=== PATIENT | female | born 2000 | race Two or more races ===

== ENCOUNTER 2024-11-09 02:06 | Day surgery (SDC) | payer MEDICAID, SELFPAY ==
[2024-11-09] VITALS (12 sets, daily range): BP systolic 84–124; BP diastolic 49–75; PULSE 60–79; RESP 13–20; TEMP 36.5–37; O2SAT 98–100; BMI 26.6
--- NOTE | 2024-11-09 02:16 | PD.EDRME ---
Rapid Medical Screening Exam RME Arrival date/time: 11/09/24 02:06 24 year old female present to Ed for c/o of abd pain for 1 day I have greeted and performed a focused initial assessment of this patient. A comprehensive ED assessment and evaluation of the patient, analysis of all test results, and completion of the medical decision making process will be conducted by additional ED providers. Chief Complaint: Abdominal Pain Time Seen by Provider: 11/09/24 02:13
[2024-11-09] MEDS: MG HYD/AL HYD/SIME (Maalox Reg) SUSP 30 ML UDC PO (02:33)
[2024-11-09 02:53] LABS: Collection Type, Urine Voided
[2024-11-09 03:02] LABS: Basophils % (Auto) 0 % (0-2.5); Eosinophils # (Auto) 0.1 Thou/mm3 (0.0-0.5); Eosinophils % (Auto) 1 % (0-10); Hematocrit 40.9 % (36.0-46.0); Hemoglobin 13.5 g/dL (12.0-16.0); Immature Granulocytes % (Auto) 0 % (0-0); Immature Granulocytes Auto 0.03 Thou/mm3 (0.00-0.00); Lymphocytes # (Auto) 2.6 Thou/mm3 (1.0-4.8); Lymphocytes % (Auto) 18 % (10-50); Mean Corpuscular Hemoglobin 27.7 pg (25.0-35.0); Mean Corpuscular Volume 84 fL (80-100); Monocytes # (Auto) 1.1 Thou/mm3 (0.0-0.8); Monocytes % (Auto) 8 % (0-12); Neutrophils # (Auto) 10.3 Thou/mm3 (1.8-7.7); Neutrophils % (Auto) 73 % (37-80); Nucleated Red Blood Cell % 0 /100 WBC (0); Platelet Count 274 Thou/mm3 (140-440); Red Blood Count 4.87 Miln/mm3 (4.00-5.20); White Blood Count 14.1 Thou/mm3 (3.6-11.0)
[2024-11-09 03:05] LABS: HCG,Qualitative Serum Negative
[2024-11-09 03:11] LABS: Bacteria,Urine 4+; Bilirubin,Urine Negative (Negative); Blood,Urine 2+ (Negative); Clarity,Urine Turbid (Clear/Hazy); Color,Urine Yellow (Lt Yel-Yel); Glucose, Urine Negative (Negative); Ketones,Urine Trace (Negative); Leukocyte Esterase,Urine Positive (Negative); Nitrite,Urine Positive (Negative); Protein,Urine 1+ (Neg - Trace); RBC,Urine 50 /hpf (0-3); Specific Gravity,Urine 1.042 (1.001-1.035); Squamous Epithelial Cell,Urine 10 /hpf (0-5); Urobilinogen,Urine Negative mg/dL (0.0-1.0); WBC,Urine 76 /hpf (0-5)
[2024-11-09 03:14] LABS: Alanine Aminotransferase 11 U/L (10-49); Albumin/Globulin Ratio 1.6 (1.2-2.2); Alkaline Phosphatase 101 U/L (46-116); Anion Gap 9 (7-16); Aspartate Amino Transferase 16 U/L (0-34); BUN/Creatinine Ratio 27 Ratio (12-20); Bilirubin,Total 0.5 mg/dL (0.3-1.2); Blood Urea Nitrogen 16 mg/dL (9-23); Calcium 9.3 mg/dL (8.3-10.6); Calcium (Corrected) 9.3 mg/dL (8.5-10.1); Carbon Dioxide 24.5 mMol/L (20.0-31.0); Chloride 106 mMol/L (98-107); Creatinine (Component) 0.6 mg/dL (0.6-1.3); Estimated Creatinine Clearance 129.1 mL/min (>60); Globulin 3.2 gm/dL (2.3-3.5); Glucose 104 mg/dL (74-106); Lipase 37 U/L (12-53); Osmolality,Calculated 278 (275-295); Potassium 3.6 mMol/L (3.4-5.1); Sodium 139 mMol/L (136-145); Total Protein 8.2 gm/dL (5.7-8.2); eGFR > 60 See Note
--- NOTE | 2024-11-09 03:40 | XR_ITS ---
Examination: CT abdomen with intravenous contrast CT pelvis with intravenous contrast 2-D coronal reconstructions 2-D sagittal reconstructions Date and time of exam:November 09, 2024 at 0453 hrs. Indications: Onset abdominal pain and lower abdomen beginning yesterday. CTDI: vol (mGy) 7.68 DLP: (mGycm) 420 Technique: Multiple axial sections of the abdomen and pelvis have been obtained. 64 slice high-resolution scanner used. 3 mm axial sections have been obtained, post intravenous injection 60 cc Isovue-370. 2-D sagittal, coronal reconstructions obtained. Low dose protocols were performed. One or more of the following dose reduction techniques were used; automated exposure control, adjustment of the mA and/or KV according to patient size, use of iterative reconstruction technique. Findings: No focal liver or splenic lesions No gallstones. No pancreatic mass. Atrophic left kidney with compensatory hypertrophy right kidney. Normal heart size. Tiny 10 mm fat-containing umbilical hernia. Inflamed enlarged appendix medial to the cecum, axial images 153 through 131 No pelvic abscess The urinary bladder is intact 11 mm noncalcified pulmonary nodule left lower lobe Impression: Acute appendicitis No peritonitis or pelvic abscess. Pulmonary 11 mm noncalcified pulmonary nodule left lower lobe, recommend PA lateral chest follow-up
--- NOTE | 2024-11-09 05:35 | PRELIM_ITS ---
ORIGINAL REPORTnullADDENDUM REPORTAcute appendicitis with an abscess [id number] mm at the tip of a ppendix. Report Electronically Signed By: Jordi Gorman 11/09/2024 8:44:00 AM [EST]
[2024-11-09] MEDS: SODIUM CHLORIDE 0.9% 1000 ML 1,000 ML 999 ML IV (06:03)
--- NOTE | 2024-11-09 06:21 | EDNOTE_ITS ---
<Statement entered by Yue Hussein MD - 11/10/24 09:19> As co-signing physician, I was present and available for consult prn. I concur with the plan and care as documented by the midlevel provider. ED Abdominal Pain RME/HPI General Chief Complaint: Abdominal Pain Stated complaint: ABD PAIN X YESTERDAY Time seen by provider: 11/09/24 02:13 Arrival date/time: 11/09/24 02:06 24-year-old female with no significant medical problems presents to the emergency department complains of lower abdominal pain x 2 days patient reports nausea without vomiting patient reports no fever Limitations: no limitations RME / HPI RME / HPI narrative: 11/09/24 02:06 24 year old female present to Ed for c/o of abd pain for 1 day I have greeted and performed a focused initial assessment of this patient. A comprehensive ED assessment and evaluation of the patient, analysis of all test results, and completion of the medical decision making process will be conducted by additional ED providers. Related Data Home Medications ?Medication ?Instructions ?Recorded ?Confirmed prenat.vits,brandee,[id number] 1 tab PO QDAY 12/19/22 12/19/22 Previous Rx's ?Medication ?Instructions ?Recorded benzocaine 20 %-menthol 0.5 % 1 spray topical TID #56 pumps 12/20/22 topical aerosol (Dermoplast (with menthol)) docusate sodium 100 mg capsule 100 mg PO BID #60 caps 12/20/22 (Colace) hydrocodone 5 mg-acetaminophen 325 1 tab PO Q6H PRN pain #30 tabs 12/20/22 mg tablet lanolin 50 % topical ointment 1 applic topical TID PRN skin 12/20/22 irritation #15 tubes witch rafaela 50 % topical pads 1 pad topical BID #100 ea 12/20/22 (Tucks (witch rafaela)) acetaminophen 500 mg tablet 1,000 mg (2 x 500 mg) PO Q6H PRN 05/19/24 (Tylenol Extra Strength) pain #60 tabs bacitracin 500 unit/gram topical 1 applic topical QDAY #30 grams 05/19/24 ointment bismuth tribrom-petrolatum,wh 4 X #100 ea 05/19/24 4 bandage (Xeroform Petrolatum Dressing) gauze bandage 3.4 X 3.6 yard #96 ea 05/19/24 (Kerlix) ibuprofen 600 mg tablet 600 mg PO Q6H PRN pain #60 tabs 05/19/24 Allergies Allergy/AdvReac Type Severity Reaction Status Date / Time No Known Allergies Allergy Verified 11/09/24 02:10 Review of Systems Review of Systems Systems Reviewed: All systems reviewed, normal except as documented Constitutional Constitutional: Reports system reviewed and no additional complaints, except as documented, Denies fever(s) and Denies headache(s) Eyes Eyes: Reports system reviewed and no additional complaints, except as documented and Denies blurry vision ENT Ears, Nose, Mouth, and Throat: Reports system reviewed and no additional complaints, except as documented, Denies headache(s), Denies nasal congestion and Denies nasal discharge Cardiovascular Cardiovascular: Reports system reviewed and no additional complaints, except as documented, Denies chest pain and Denies dyspnea Respiratory Respiratory: Reports system reviewed and no additional complaints, except as documented, Denies chest congestion, Denies cough and Denies dyspnea Gastrointestinal Gastrointestinal: Reports system reviewed and no additional complaints, except as documented, Reports abdominal pain, Denies nausea and Denies vomiting Integumentary/Breasts Skin/Breast: Reports system reviewed and no additional complaints, except as documented and Denies rash Neurologic Neurologic: Reports system reviewed and no additional complaints, except as documented, Reports as per HPI and Denies headache(s) Past Medical History Past Medical History NEUROLOGIC: Negative Neurological Disorders ED Exam General Limitations: Present no limitations General appearance: Present alert and in no apparent distress Head Head exam: Present atraumatic, normocephalic and normal inspection Eye Eye exam: Present normal appearance, PERRL and EOMI; Absent conjunctival injection ENT ENT exam: Present normal exam, normal oropharynx and mucous membranes moist Neck Neck exam: Present normal inspection, full ROM and trachea midline Chest Chest inspection: Present normal inspection and symmetric chest wall rise Respiratory Respiratory exam: Present normal lung sounds bilaterally; Absent respiratory distress Cardiovascular Cardiovascular exam: Present regular rate, normal rhythm and normal heart sounds Abdominal Exam Abdominal exam: Present soft, tenderness and normal bowel sounds; Absent distention, guarding, rebound or rigidity Extremities Exam Extremities exam: Present normal inspection and full ROM Back Exam Back exam: Present normal inspection and full ROM Neurological Exam Neurological exam: Present alert, oriented X3 and CN II-XII intact Psychiatric Psychiatric exam: Present normal affect and normal mood Skin Skin exam: Present warm, dry, intact and normal color Course Quality Measures none Orders Category Date Time Status COVID-19 Screening Questionnaire NOW Care 11/09/24 07:[address] Screening NOW Care 11/09/24 03:40 Active Decision to Admit X1 Care 11/09/24 06:45 Active IV [Insert IV] STAT Care 11/09/24 03:[address] abdomen pelvis w con Stat Exams 11/09/24 03:40 Taken Blood Culture (Lab) Stat Lab 11/09/24 05:41 Ordered CBC Stat Lab 11/09/24 02:22 Completed CMP [Comprehensive Metabolic Panel] Stat Lab 11/09/24 02:22 Completed HCG,Qualitative Serum Stat Lab 11/09/24 02:22 Completed Lipase Stat Lab 11/09/24 02:22 Completed UA [Urinalysis] Stat Lab 11/09/24 02:30 Completed Piper/Tazo Inj [Zosyn Inj] 3.375 gm Med 11/09/24 05:41 Discontinued Sodium Chloride 0.9% (P) [Ns 0.9% (P)] 50 ml IV X1 Sodium Chloride 0.9% 1000 ml [Ns] 1,000 ml Med 11/09/24 05:41 Discontinued IV 999 mls/hr mg Hyd/Al Hyd/Santiago Susp [Maalox Susp] Med 11/09/24 02:17 Discontinued 30 ml PO X1 ONE Vital Signs Vital signs: Vital Signs Temperature 98.6 F 11/09/24 02:16 Pulse Rate 79 11/09/24 02:16 Respiratory Rate 17 11/09/24 02:16 Blood Pressure 123/69 11/09/24 02:16 Pulse Oximetry (%) 98 11/09/24 02:16 Oxygen Delivery Method Room Air 11/09/24 02:16 O2 saturation 98% room air within normal limits Abdominal Pain MDM MDM Narrative MDM Narrative:: 24-year-old female with no significant medical problems presents to the emergency department complains of lower abdominal pain x 2 days patient reports nausea without vomiting patient reports no fever On exam patient well-appearing patient does not appear ill or toxic in no acute distress On exam patient does have tenderness lower abdomen Lab work as well as CT scan ordered by my colleague patient does have leukocytosis CT scan consistent with appendicitis Patient given IV fluids and first dose of antibiotics here Consultation: 07:00 AM: I spoke with Dr. Orlando who will admit the patient for surgery At time of admission patient is in no distress Patient data External records reviewed:: [facility] previous records Clinical information provided by:: patient Social determinants that could affect healthcare access:: none Patient has the following chronic illnesses:: None How is presenting disease/condition affected by chronic disease/condition?: no chronic disease Evaluation data The following diagnostics were reviewed and interpreted by me:: lab results and radiology exam(s) Lab and/or radiology exams considered but not ordered:: Labs and radiology obtained Interpretation Summary: Reviewed by me Medications / Prescriptions Medications or Prescriptions considered but not ordered:: Given Medication administrations:: Medication Administration History Discontinued Medications Al Hydrox/Mg Hydrox/Simethicone (Mg Hyd/Al Hyd/Santiago (Maalox Reg) Susp 30 Ml Udc) 30 ml PO X1 ONE Stop: 11/09/24 02:18 Last Admin: 11/09/24 02:33 Dose: 30 ml Documented By: BERNARDA Piperacillin Sod/Tazobactam (Sod 3.375 gm/ Sodium Chloride) 50 mls @ 100 mls/hr IV X1 ONE Stop: 11/09/24 06:10 Sodium Chloride (Ns) 1,000 mls @ 999 mls/hr IV .Q1H1M ONE Stop: 11/09/24 06:41 Last Admin: 11/09/24 06:03 Dose: 999 mls/hr Documented By: BERNARDA Given Consultations Consultation(s) initiated? (list below): Yes Consultation #1 (Physician, Specialty, Details): Dr Orlando Diagnosis Differential diagnosis abdominal pain: abdominal pain, acute appendicitis and gastroenteritis Most likely diagnosis given after review of the tests above:: Appendicitis Admission Indicated Admission indicated?: indicated Admission Request Was there a request for admission?: Yes Admission Attestation Admission request attestation: Discussed case with [] from Hospitalist service regarding admission. Discussed patients ED course, exam findings, labs, and radiology results. The Hospitalist [agrees,declines] to accept the patient for admission. Disposition Plan Disposition Plan: Discharge Discharge Attestation Discharge Attestation: The patient and all family members were given an opportunity to ask questions and understood the discharge instructions. Discharge instructions specifically effects, indications for sooner follow up or return to the emergency department, and the expected course of current diagnosis. Patient condition: Stable Discharge Plan Plan Patient Disposition: Admit Acute Care w/in Hospital Disposition Comment: Stable Prescriptions/Referrals Prescriptions/Med Rec: No Action prenat.vits,brandee,mvs-obpe-kujpq Tablet 1 tab PO QDAY Dermoplast (with menthol) 20-0.5 % aerosol 1 spray topical TID Qty: 56 0RF hydrocodone-acetaminophen 5-325 mg tablet 1 tab PO Q6H MDD 6 PRN (Reason: pain) Qty: 30 0RF docusate sodium [Colace] 100 mg capsule 100 mg PO BID Qty: 60 0RF lanolin 50 % ointment 1 applic topical TID PRN (Reason: skin irritation) Qty: 15 0RF Tucks (witch rafaela) 50 % pads, medicated 1 pad topical BID Qty: 100 0RF bacitracin 500 unit/gram ointment 1 applic topical QDAY Qty: 30 1RF (DME) Xeroform Petrolatum Dressing 4 X 4 bandage See Rx Instructions .Route Qty: 100 0RF Rx Instructions: As directed (DME) Kerlix 3.4 X 3.6 -yard bandage See Rx Instructions .Route Qty: 96 0RF Rx Instructions: As directed ibuprofen 600 mg tablet 600 mg PO Q6H PRN (Reason: pain) Qty: 60 0RF acetaminophen [Tylenol Extra Strength] 500 mg tablet 1,000 mg PO Q6H PRN (Reason: pain) Qty: 60 0RF Referrals: No Primary/Family,Physician [Primary Care Provider] - In 1 week Problem List Clinical Impression: Acute appendicitis Patient/Caregiver Discharge Instructions Print Language: Urdu Stand Alone Forms: Rita Award Info., Patient Portal Info Letter PA/CERTIFIED SURGICAL TECH/FIRST ASSISTANT Supervising Physician PA/CERTIFIED SURGICAL TECH/FIRST ASSISTANT Supervising Physician: Dr. HUSSEIN
[2024-11-09] MEDS: PIPER/TAZO INJ 3.375 GM in SODIUM CHLORIDE 0.9% (P) 50 ML IV (07:15)
[2024-11-09] MEDS: CEFOXITIN 2 GM in SODIUM CHLORIDE 0.9% (P) 50 ML IV (08:03)
[2024-11-09] MEDS: KCL 20 mEq/L in D5-1/2NS 20 MEQ/1,000 ML BAG 100 MEQ IV (09:32)
--- NOTE | 2024-11-09 09:47 | CHAP ---
Patient expressed gratitude for prayer.
--- NOTE | 2024-11-09 11:00 | PD.SURHP ---
HPI Date of Admission 11/09/2024 Chief Complaint Chief Complaint: Right lower quadrant abdominal pain with nausea and vomiting HPI 24-year-old female without significant past medical history presented to the emergency department with acute onset of abdominal pain. Her pain started yesterday and epigastric and periumbilical region. The pain was initially intermittent. Her pain then become persistent, progressively worse and localized over right lower quadrant. She has had an episode of nausea and vomiting, but denies fever, chills, diarrhea, constipation or dysuria. She denies having similar symptoms in the past. Review of Systems Constitutional Constitutional: Denies chills, Denies fever(s) and Reports headache(s) ENT Ears, Nose, Mouth, and Throat: Reports headache(s) Cardiovascular Cardiovascular: Denies chest pain Respiratory Respiratory: Denies cough Gastrointestinal Gastrointestinal: Reports abdominal pain, Reports nausea and Reports vomiting Genitourinary Genitourinary: Denies difficulty voiding Neurologic Neurologic: Reports headache(s) Hematologic/Lymphatic Hematologic/Lymphatic: Denies easy bleeding and Denies easy bruising Past Medical History Surgical History OTHER SURGICAL HX: No surgeries in the past Social History SMOKING STATUS: Never smoker SUBSTANCE USE: does not use ALCOHOL: Never Meds Home Medications and Allergies Home Medications ?Medication ?Instructions ?Recorded ?Confirmed ?Type prenat.vits,brandee,rrx-jksh-aynbf 1 tab PO QDAY 12/19/22 12/19/22 History Allergies Allergy/AdvReac Type Severity Reaction Status Date / Time No Known Allergies Allergy Verified 11/09/24 02:10 Exam Vital Signs Temp Pulse Resp BP Pulse Ox O2 Del Method 97.9 F 70 18 124/65 100 Room Air 11/09/24 10:54 11/09/24 10:54 11/09/24 10:54 11/09/24 10:54 11/09/24 10:54 11/09/24 10:54 Constitutional Constitutional: no acute distress Routine Respiratory Exam Respiratory: Present CTA bilaterally Routine Cardiovascular Exam Cardiovascular: Present RRR Routine Abdominal Exam Abdominal: Present soft, normoactive bowel sounds and tenderness (RLQ tenderness to palpation with guarding, no rebound tenderness or peritonitis at this time); Absent distended Results Results: Laboratory Laboratory results: results reviewed Results: Imaging CT scan - abdomen: report reviewed and image reviewed CT scan - pelvis: report reviewed and image reviewed Assessment & Plan Problem List (1) Acute appendicitis: Qualifiers: Acute appendicitis type: unspecified acute appendicitis type Qualified Code(s): K35.80 - Unspecified acute appendicitis Status: Acute Plan Keep NPO with IVF and IV antibiotics and plan for laparoscopic possible open appendectomy. Risks include but not limited to infection, bleeding, injury to bowel, uterus, ovaries, surround neurovascular structures, abdominal sepsis and or abdominal abscess, need for further procedure and or operation discussed with the patient via sorter laundry articles. Benefits and alternatives explained to her, all her questions answered, she agreed and consented to proceed with the operation. Quality Measures Quality Measures none
--- NOTE | 2024-11-09 12:12 | PC.NURSE ---
Report given to Mayco Morgan, patient will transfer for surgery.
--- NOTE | 2024-11-09 13:39 | ESOP_ITS ---
Date of Procedure 11/09/24 Pre Op Diagnosis Acute appendicitis Post Op Diagnosis Acute appendicitis Procedure Laparoscopic appendectomy Findings Inflamed, dilated and hyperemic appendix without perforation Procedure Description Patient was brought into the operating room in supine position. After administration of general endotracheal anesthesia, abdomen was prepped and draped in standard surgical manner. A Veress needle was inserted through the umbilicus and pneumoperitoneum was obtained up to 15 mmHg. The Veress needle was removed and a 5 mm umbilical incision was made. A 5 mm trocar was placed and laparoscopic camera was inserted. Under direct visualization a laparoscopic camera a 5 mm trocar placed in suprapubic region and a 10 mm trocar placed in left lower quadrant. The abdomen was inspected, the cecum was identified and followed until the appendix was identified. The appendix was noted to be inflamed, dilated and hyperemic without perforation. A window was created between the appendix and mesoappendix and the appendix was divided near the appendix and cecal junction with blue Endo TRE stapling device. The mes oappendix was divided with espinosa Endo TRE stapling device. The appendix was placed inside an Endo Catch and removed from the abdomen utilizing left lower quadrant trocar site. Abdomen and pelvis copiously and thoroughly washed and irrigated, all the fluids were suctioned and the suctioned fluid returned clear. Hemostasis was adequate and satisfactory, staple lines were intact without bleeding or any leakage. Patient's uterus and ovaries appeared to be unremarkable. Left lower quadrant trocar sites fascial defect was closed with 0 Vicryl using Endo closure device. Instruments and trocars removed, pneumoperitoneum was evacuated and the incisions closed with 4-0 Monocryl subcuticular fashion. Instruments, needles and sponge counts were reported to be correct ??2. Patient tolerated the procedure well, was extubated, breathing spontaneously and without difficulty and was transferred to postanesthesia care in stable condition. Anesthesia GETA and local Pathology / specimen Other (Appendix) Estimated Blood Loss 5 Condition Stable Disposition PACU Surgeon Kindra Orlando MD Surgical Staff Operation Date: 11/09/24 13:45 Case Staff Anesthesiologist: Boyd Avalos RN First Assistant: Cyndi Garcia
--- NOTE | 2024-11-09 13:43 | SUR.PHASEI ---
1347 Patient arrived to recovery resting comfortably in [facility], on oxygen 8L via oxy mask with an oral airway in place, breathing unlabored, vital signs stable, dressing intact to lower abdomen; dermabond, no bleeding noted, lung sounds clear upon auscultation, bilateral radial pulses present when palpated, report received from Renetta
--- NOTE | 2024-11-09 15:14 | SUR.PHASEII ---
1514 Patient meets discharge criteria from recovery, awake and alert, breathing unlabored, vital signs stable, denies pain states, It's just sore , patient eating ice chips; tolerating well, denies nausea, patient assisted with dressing into her clothing by this clinical writer and her mother, discharge instructions given to patient and patients mother with the assistance of the telephone and drying supervisor cooking casing Shakira ID#[id number], mother signed discharge instructions. Patient given all her belongings prior to discharge, transported via wheelchair and left in a private vehicle.
== END 2024-11-09 15:14 | disposition home or self-care (01) ==
LOC: SERX 07:04 → S2EX 08:06
PROVIDERS: Physician Assistant; Emergency Provider Emergency Medicine; Referring Provider Surgery; Visit Provider Surgery
PROC: 0DTJ4ZZ Resection of Appendix, Percutaneous Endoscopic Approach (ICD-10-PCS; CPT 44970; principal; 2024-11-09 13:30)
DX: K35.30 Acute appendicitis with localized peritonitis, without perforation or gangrene (principal)
CPT/HCPCS: 44970; 36415; 74177; 80053; 81001; 83690; 84703; 85025; 87040; 96361; 96365; 96367; 99285; A4217; A4649; J0694; J1100; J2250; J2405; J2543; J2704; J3010; J3480; J3490; J7030; J7050; Q9967; A9270; J1805

== ENCOUNTER 2025-07-25 10:59 | Emergency (ER) | payer MEDICAID, SELFPAY ==
[2025-07-25 11:12] VITALS: BP 129/78; PULSE 80; RESP 17; TEMP 36.8; O2SAT 100; BMI 25.7
--- NOTE | 2025-07-25 11:18 | XR_ITS ---
Examination: OB Transvaginal ultrasound of the pelvis, complete Technique: Transvaginal sonographic images pelvis performed using espinosa scale imaging Exam date and time: July 25, 2025, 12 noon INDICATIONS: Pelvic pain and vaginal bleeding today, 6 week by history FINDINGS: Uterus 7.4 cm, thickened endometrial stripe especially in the body of the endometrium 1.7 cm but extending to the cervix No intrauterine gestation Right ovary 2.4 cm arterial flow Left ovary 4.0 cm arterial flow IMPRESSION: Findings most consistent with incomplete spontaneous with retained products of conception.
[2025-07-25 11:46] LABS: Basophils # (Auto) 0.0 Thou/mm3 (0.0-0.2); Basophils % (Auto) 0 % (0-2.5); Eosinophils # (Auto) 0.1 Thou/mm3 (0.0-0.5); Eosinophils % (Auto) 1 % (0-10); Hematocrit 39.5 % (36.0-46.0); Hemoglobin 12.8 g/dL (12.0-16.0); Immature Granulocytes Auto 0.01 Thou/mm3 (0.00-0.00); Lymphocytes # (Auto) 1.9 Thou/mm3 (1.0-4.8); Lymphocytes % (Auto) 26 % (10-50); Mean Corpuscular HGB Conc 32.4 g/dl (31.0-37.0); Mean Corpuscular Hemoglobin 27.7 pg (25.0-35.0); Mean Corpuscular Volume 86 fL (80-100); Monocytes # (Auto) 0.6 Thou/mm3 (0.0-0.8); Monocytes % (Auto) 9 % (0-12); Neutrophils # (Auto) 4.5 Thou/mm3 (1.8-7.7); Neutrophils % (Auto) 64 % (37-80); Nucleated Red Blood Cell # 0.00 Thou/mm3 (0.00-0.00); Nucleated Red Blood Cell % 0 /100 WBC (0); Platelet Count 241 Thou/mm3 (140-440); RDW Standard Deviation 39.5 fL (36.4-46.3); Red Blood Count 4.62 Miln/mm3 (4.00-5.20); White Blood Count 7.1 Thou/mm3 (3.6-11.0)
[2025-07-25 12:27] LABS: Alanine Aminotransferase 8 U/L (10-49); Albumin, Serum 4.7 gm/dL (3.5-5.0); Albumin/Globulin Ratio 1.7 (1.2-2.2); Alkaline Phosphatase 77 U/L (46-116); Anion Gap 9 (7-16); Aspartate Amino Transferase 12 U/L (0-34); BUN/Creatinine Ratio 11 Ratio (12-20); Beta HCG,Quantitative 4942 mIU/mL (<5.0); Bilirubin,Total 0.5 mg/dL (0.3-1.2); Blood Urea Nitrogen 8 mg/dL (9-23); Calcium 9.3 mg/dL (8.3-10.6); Calcium (Corrected) 9.3 mg/dL (8.5-10.1); Carbon Dioxide 25.1 mMol/L (20.0-31.0); Chloride 107 mMol/L (98-107); Creatinine (Component) 0.7 mg/dL (0.6-1.3); Estimated Creatinine Clearance 117.5 mL/min (>60); Globulin 2.8 gm/dL (2.3-3.5); Glucose 86 mg/dL (74-106); Osmolality,Calculated 278 (275-295); Potassium 3.9 mMol/L (3.4-5.1); Sodium 141 mMol/L (136-145); Total Protein 7.5 gm/dL (5.7-8.2); eGFR > 60 See Note
--- NOTE | 2025-07-25 14:32 | EDNOTE_ITS ---
ED Female Urogenital RME/HPI General Chief complaint: Abdominal Pain Stated complaint: VAGINAL BLEEDING/ABD PAIN/ Time Seen by Provider: 07/25/25 11:18 Arrival date/time: 07/25/25 10:59 24-year-old female presents to the emergency department plaints of pelvic pain and vaginal bleeding patient reports onset 2 days ago. Patient reports being approximately 4 to 5 weeks Limitations: no limitations Related Data Home Medications ?Medication ?Instructions ?Recorded ?Confirmed prenat.vits,brandee,[id number] 1 tab PO QDAY 12/19/22 07/26/25 Previous Rx's ?Medication ?Instructions ?Recorded benzocaine 20 %-menthol 0.5 % 1 spray topical TID #56 pumps 12/20/22 topical aerosol (Dermoplast (with menthol)) lanolin 50 % topical ointment 1 applic topical TID PRN skin 12/20/22 irritation #15 tubes witch rafaela 50 % topical pads 1 pad topical BID #100 e a 12/20/22 (Tucks (witch rafaela)) docusate sodium 100 mg capsule 100 mg PO BID #30 caps 11/09/24 (Colace) hydrocodone 5 mg-acetaminophen 325 1 tab PO Q6H PRN pa in (scale score 11/09/24 mg tablet 7-10) #10 tabs ibuprofen 600 mg tablet 600 mg PO Q8H PRN pain (scal e 11/09/24 score 4-6) #15 tabs Allergies Allergy/AdvReac Type Severity Reaction Status Date / Time No Known Allergies Allergy Verified 07/26/25 10:24 Review of Systems Review of Systems Systems Reviewed: All systems reviewed, normal except as documented Constitutional Constitutional: Reports system reviewed and no additional complaints, except as documented, Denies fever(s) and Denies headache(s) Eyes Eyes: Reports system reviewed and no additional complaints, except as documented and Denies blurry vision ENT Ears, Nose, Mouth, and Throat: Reports system reviewed and no additional complaints, except as documented, Denies headache(s), Denies nasal congestion and Denies nasal discharge Cardiovascular Cardiovascular: Reports system reviewed and no additional complaints, except as documented, Denies chest pain and Denies dyspnea Respiratory Respiratory: Reports system reviewed and no additional complaints, except as documented, Denies chest congestion, Denies cough and Denies dyspnea Gastrointestinal Gastrointestinal: Reports system reviewed and no additional complaints, except as documented and Denies abdominal pain Genitourinary Genitourinary: Reports system reviewed and no additional complaints, except as documented and Reports abnormal vaginal bleeding Integumentary/Breasts Skin/Breast: Reports system reviewed and no additional complaints, except as documented and Denies rash Neurologic Neurologic: Reports system reviewed and no additional complaints, except as documented, Reports as per HPI and Denies headache(s) Past Medical History Past Medical History NEUROLOGIC: Negative Neurological Disorders, Seizures or Amyotrophic Lateral Sclerosis (ALS/Elida Gehrig's) CARDIAC: Negative Cardiac Disorders or Congestive Heart Failure RESPIRATORY: Negative Chronic Obstructive Pulmonary Disease (COPD) or Asthma GASTROINTESTINAL: Negative Gastrointestinal Disorders, Hepatitis or Colorectal Cancer GENITOURINARY: Negative Genitourinary Disorders, Renal Disease or Prostate Cancer REPRODUCTIVE: Positive Previous Pregnancies; Negative Breast Cancer, Pelvic Inflammatory Disease or Testicular Cancer MUSCULOSKELETAL: Negative Musculoskeletal Disorders or Bone Cancer ENDOCRINE: Negative Endocrine Disorders, Diabetes Mellitus Type 1 or Diabetes Mellitus Type 2 HEMATOLOGIC: Negative Blood Disorders or Sickle Cell Disease PSYCHO/SOCIAL: Positive Anxiety (no meds); Negative Psychiatric Problems, Schizophrenia, Recreational Drug Use, Bipolar Disorder, Depression, Behavior Problems, Self-Mutilation, Attention Deficit Disorder, Attention Deficit Hyperactivity Disorder, Depression, Post Traumatic Stress Disorder or Eating Disorder OTHER HISTORY: Negative Hospitalization, Autoimmune Disease, Down Syndrome, Autism, Developmental Delay, Shingles, Falls, Blood Transfusions, Blood Transfusion Reaction, Anesthesia Reactions, Organ Transplant, Chemotherapy, Radiation Therapy, Hyperbaric Therapy, MRSA, VRSA, Vancomycin-Resistant Enterococci, Human Immunodeficiency Virus (HIV), Chicken Pox, Measles, Mumps, Rubella (Cub[place] Measles), Pertussis, Clostridium Difficile, Cancer, Breast Cancer, Cervical Cancer, Colorectal Cancer, Lung Cancer, Ovarian Cancer, Prostate Cancer or Testicular Cancer Family History FAMILY HISTORY: Positive Family Cardiac Disorders (sister had open heart surgery and has a pacemaker) and Family Anesthesia Reaction (sister); Negative Family Psychiatric Problems, Family Respiratory Disorders, Family Gastrointestinal Problems, Family Cancer or Family Surgery Surgical History SURGICAL: Negative Section or Organ Transplant Social History SMOKING STATUS: Never smoker SECOND HAND EXPOSURE: No SUBSTANCE USE: does not use ED Exam General Limitations: Present no limitations General appearance: Present alert and in no apparent distress Head Head exam: Present atraumatic, normocephalic and normal inspection Eye Eye exam: Present normal appearance, PERRL and EOMI; Absent conjunctival injection ENT ENT exam: Present normal exam, normal oropharynx and mucous membranes moist Neck Neck exam: Present normal inspection, full ROM and trachea midline Chest Chest inspection: Present normal inspection and symmetric chest wall rise Respiratory Respiratory exam: Present normal lung sounds bilaterally; Absent respiratory distress, wheezes, stridor, accessory muscle use or prolonged expiratory phase Cardiovascular Cardiovascular exam: Present regular rate, normal rhythm and normal heart sounds Abdominal Exam Abdominal exam: Present soft and normal bowel sounds; Absent distention, tenderness, guarding, rebound or rigidity Extremities Exam Extremities exam: Present normal inspection and full ROM Back Exam Back exam: Present normal inspection and full ROM Neurological Exam Neurological exam: Present alert, oriented X3 and CN II-XII intact Psychiatric Psychiatric exam: Present normal affect and normal mood Skin Skin exam: Present warm, dry, intact and normal color Course Quality Measures none Orders Category Date Time Status US OB transvaginal Stat Exams 07/25/25 11:18 Completed ABO/RH Type Stat Lab 07/25/25 11:29 Completed Beta HCG,Quantitative Stat Lab 07/25/25 11:29 Completed CBC Stat Lab 07/25/25 11:29 Completed Comprehensive Metabolic Panel Stat Lab 07/25/25 11:29 Completed Vital Signs Vital signs: Vital Signs Temperature 98.3 F 07/25/25 11:12 Pulse Rate 80 07/25/25 11:12 Respiratory Rate 17 07/25/25 11:12 Blood Pressure 129/78 07/25/25 11:12 Pulse Oximetry (%) 100 07/25/25 11:12 Oxygen Delivery Method Room Air 07/25/25 11:12 O2 saturation 100% room air within normal Urogenital - Female MDM Narrative MDM Narrative:: 24-year-old female presents to the emergency department plaints of pelvic pain and vaginal bleeding patient reports onset 2 days ago. Patient reports being approximately 4 to 5 weeks On exam patient well-appearing patient does not appear ill or toxic patient hemodynamically stable Lab work imaging obtained I suspect patient is most likely having miscarriage Consultation: I spoke with Dr. Guerrero who states he can see the patient office tomorrow 10 AM At time of discharge patient no distress Patient data External records reviewed:: [facility] previous records Clinical information provided by:: patient Social determinants that could affect healthcare access:: none Patient has the following chronic illnesses:: None How is presenting disease/condition affected by chronic disease/condition?: no chronic disease Evaluation data The following diagnostics were reviewed and interpreted by me:: lab results and radiology exam(s) Lab and/or radiology exams considered but not ordered:: Labs and radiology obtained Interpretation Summary: Reviewed by me Medications / Prescriptions Medications or Prescriptions considered but not ordered:: Given Medication administrations:: Given Consultations Consultation(s) initiated? (list below): Yes Diagnosis Urogenital Female Differential Diagnosis: other (Dysfunction uterine bleeding, missed , threatened ) Most likely diagnosis given after review of the tests above:: Threatened Admission Indicated Admission indicated?: not indicated Admission Request Was there a request for admission?: No Disposition Plan Disposition Plan: Discharge Discharge Attestation Discharge Attestation: The patient and all family members were given an opportunity to ask questions and understood the discharge instructions. Discharge instructions specifically effects, indications for sooner follow up or return to the emergency department, and the expected course of current diagnosis. Patient condition: Stable Discharge Plan Plan Patient Disposition: HOME (Self Care) Discharge Disposition comment: Stable Prescriptions/Referrals Prescriptions/Med Rec: No Action docusate sodium [Colace] 100 mg capsule 100 mg PO BID Qty: 30 0RF ibuprofen 600 mg tablet 600 mg PO Q8H PRN (Reason: pain (scale score 4-6)) Qty: 15 0RF hydrocodone-acetaminophen 5-325 mg tablet 1 tab PO Q6H MDD 4 PRN (Reason: pain (scale score 7-10)) Qty: 10 0RF prenat.vits,brandee,[id number] Tablet 1 tab PO QDAY Dermoplast (with menthol) 20-0.5 % aerosol 1 spray topical TID Qty: 56 0RF lanolin 50 % ointment 1 applic topical TID PRN (Reason: skin irritation) Qty: 15 0RF Tucks (witch rafaela) 50 % pads, medicated 1 pad topical BID Qty: 100 0RF Referrals: Jesus Guerrero MD [Physician, SENIOR CHEMICAL ENGINEER] - 07/26/25 10:00 am Problem List Clinical Impression: , threatened Patient/Caregiver Discharge Instructions Education Materials: ED Possible Miscarriage ... Additional Instructions: Please follow-up with Dr. Guerrero tomorrow at 10 AM for worsening symptoms or concerns return immediately Print Language: [place] Stand Alone Forms: Rita Award Info., Work/School Release, Patient Portal Info Letter PA/CUSTOMS OPENER VERIFIER PACKER Supervising Physician PA/CUSTOMS OPENER VERIFIER PACKER Supervising Physician: Dr. Duke
== END 2025-07-25 15:18 | disposition home or self-care (01) ==
PROVIDERS: Nurse Practitioner Primary Care; Emergency Provider Family Medicine
DX: O20.0 Threatened abortion (principal); Z3A.01 Less than 8 weeks gestation of pregnancy; R10.20 Pelvic and perineal pain unspecified side
CPT/HCPCS: 36415; 76817; 80053; 84702; 85025; 86900; 86901; 99283

== ENCOUNTER 2025-07-26 10:14 | Outpatient (AMB) | payer MEDICAID, SELFPAY ==
[2025-07-26 10:23] VITALS: BP 99/61; PULSE 69; RESP 16; TEMP 36.8; O2SAT 98; BMI 25.2
--- NOTE | 2025-07-26 10:23 | GYNCLNT_ITS ---
Vital Signs 07/26/25 10:23 Height 1.63 m Height Method Stated Weight 67.188 kg Weight Measurement Method Standing Scale BMI 25.2 BP 99/61 Blood Pressure Source Automatic Cuff Blood Pressure Location Left Upper Arm Position Sitting Respiration 16 Pulse 69 Pulse Source Monitor Temp 98.2 F Temp Source Oral Pulse Oximetry (%) 98 Oxygen Delivery Method Room Air Allergies/Home Meds Allergies & Medications Allergies No Known Allergies Allergy (Verified 07/26/25 10:24) Medication Reconciliation prenat.vits,brandee,[id number] 1 tab PO QDAY 12/19/22 [History Confirmed 07/26/25] benzocaine 20 %-menthol 0.5 % topical aerosol (Dermoplast (with menthol)) 1 spray topical TID #56 pumps 12/20/22 [Rx Confirmed 07/26/25] lanolin 50 % topical ointment 1 applic topical TID PRN skin irritation #15 tubes 12/20/22 [Rx Confirmed 07/26/25] witch rafaela 50 % topical pads (Tucks (witch rafaela)) 1 pad topical BID #100 ea 12/20/22 [Rx Confirmed 07/26/25] docusate sodium 100 mg capsule (Colace) 100 mg PO BID #30 caps 11/09/24 [Rx Confirmed 07/26/25] hydrocodone 5 mg-acetaminophen 325 mg tablet 1 tab PO Q6H PRN pain (scale score 7-10) #10 tabs 11/09/24 [Rx Confirmed 07/26/25] ibuprofen 600 mg tablet 600 mg PO Q8H PRN pain (scale score 4-6) #15 tabs 11/09/24 [Rx Confirmed 07/26/25] Intake Visit Data Collection New Patient or Established: Established Patient (seen at [facility] within 3 years) Reason for Visit:: ER FOLLOW UP Seen by Clinical Staff ONLY (RN/MA): No Nightclub Manager Required: No Do You Feel Safe at Home: Yes Authorities Contacted: N/A PCP or OBGYN visit in last 3 months: Yes Date of Last PCP or OBGYN visit: 07/25/25 Hx Now: Yes Are you currently on any form of Control: No Last menstrual period: 06/20/25 Pain Present Currently: No Pain Scale Used: Berry-Dangelo/Numerical Pain scale:: 0 Smoking Status Smoking Status: Never smoker Associate 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 Menstrual regularity: regular Flow: normal Monthly: Yes How many days does period last: 5 Age at menarche: 15 Menopausal: No Currently 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 1. Little interest or pleasure in doing things: not at all 2. Feeling down, depressed, or hopeless: not at all Total score: 0 PHQ-9 3. Trouble falling or staying asleep, or sleeping too much: Not at all 4. Feeling tired or having little energy: Not at all 5. Poor appetite or overeating: Not at all 6. Feeling bad about yourself - or that you are a failure or have let yourself or your family down: Not at all 7. Trouble concentrating on things, such as reading the newspaper or watching television: Not at all 8. Moving or speaking so slowly that other people could have noticed? - Or the opposite - being so fidgety or restless that you have been moving around a lot more than usual: not at all 9. Thoughts that you would be better off or of hurting yourself in some way: Not at all Total score: 0 If you checked off any problems, how difficult have these problems made it for you to do your work, take care of things at home, or get along with other people?: not difficult at all Source: Developed by Drs. Denton Almanza, Beba Woodward, Luis Begum and colleagues, with an educational avel from [employer]. Depression screen completed yes Social History Living Situation History Marital Status: Lives With: Family Housing: House Tobacco History Smoking Status: Never smoker Second Hand Smoke Exposure: No Alcohol History Alcohol Intake: Never Domestic Abuse History Do You Feel Safe at Home: Yes History of Present Illness HPI Narrative Vaginal bleeding following emergency room visit yesterday for ongoing miscarriage Francisca Navarrete presents following an emergency room visit yesterday for vaginal bleeding in the setting of an ongoing miscarriage. The patient was seen in the emergency room yesterday for vaginal bleeding. The bleeding was more significant yesterday and has since slowed down. During her emergency room visit, she underwent ultrasound and blood work evaluation. She reports that she has passed what appears to be the gestational sac today. The patient requires follow-up ultrasound and laboratory studies to ensure complete passage of tissue and to monitor her hormone levels. She was informed that any remaining tissue could cause persistent bleeding. Medical History: - Emergency room visit yesterday for bleeding Obstetric History: - GPAL: G1 T0 L0 - Recent miscarriage of first , gestational age estimated by last menstrual period Diagnostic Test Results and Labs: - hormone (beta-hCG): 4900 - Pelvic ultrasound: Ongoing miscarriage with retained tissue, no measurable sac present Exam General General Appearance: alert, in no apparent distress and healthy appearing Head Head exam: atraumatic Neck Neck exam: Present normal inspection and trachea midline Chest Chest inspection: Present normal inspection and symmetric chest wall rise External exam: Present normal external exam; Absent tenderness Neuro Neurological exam: Present oriented X3 Psych Psychiatric exam: Present normal affect and normal mood Office Procedures OBC Clinic LOC & Office Proc's Nursing/Assessment Patient Status: Established Patient OB Clinic Nursing Assessment: Medication Reconciliation, Update PMH in EMR and Vital Signs OB Clinic Coordination of Care: Education Complex Pt/Fam, Consent,records obtained, informed consent, Lab and Imaging orders, Results/Orders obtained and Staff clarify orders Established Patient Charge Established Patient Point Assignment: 85 Established Patient Point Charge: EP Level 3 (80-115) Assessment & Plan Diagnosis / Problem List (1) , threatened: Status: Acute Plan Incomplete miscarriage Assessment: Patient presented to ER yesterday with bleeding and underwent ultrasound and laboratory evaluation. Ultrasound demonstrated ongoing miscarriage with retained tissue. Beta-hCG level was 4900, which is significantly elevated and should correlate with presence of heartbeat at this level, indicating non-viable . Patient reports bleeding has decreased since yesterday and appears to have passed the gestational sac today. Clinical presentation is consistent with incomplete miscarriage requiring further evaluation to ensure complete evacuation of retained products of conception. Plan: - Obtain repeat pelvic ultrasound to assess for retained products of conception - Order repeat beta-hCG level to confirm declining trend - Call patient with results once available - If retained tissue identified on ultrasound, will discuss treatment options including medical management versus surgical intervention based on imaging findings - Patient may resume normal activities as tolerated provided no pain or active bleeding - Expect bleeding similar to menstrual period lasting 3-4 days
== END 2025-07-26 11:01 | disposition home or self-care (01) ==
LOC: HODSOBC 10:14
PROVIDERS: Supervising Provider Obstetrics & Gynecology; Visit Provider Obstetrics & Gynecology
DX: O20.0 Threatened abortion (principal); Z3A.00 Weeks of gestation of pregnancy not specified
CPT/HCPCS: 99213; G0463

== ENCOUNTER → 2025-07-31 | Outpatient (CLI) | payer MEDICAID, SELFPAY ==
--- NOTE | 2025-07-31 09:30 | XR_ITS ---
Examination: OB Transvaginal ultrasound of the pelvis, complete Technique: Transvaginal sonographic images pelvis performed using espinosa scale imaging Exam date and time: July 31, 2025, 0949 hours INDICATIONS: Vaginal bleeding beginning 5 days ago. FINDINGS: Uterus 7.1 cm endometrial stripe thickened 1.0 cm No intrauterine gestation Right ovary 2.8 cm arterial flow Left ovary obscured by bowel gas IMPRESSION: Findings most consistent with retained products of conception.
--- NOTE | 2025-07-31 09:30 | XR_ITS ---
Examination: Complete OB ultrasound, less than 14 weeks, transabdominal Date and time of exam: July 31, 2025, 0942 hours INDICATIONS: Vaginal bleeding beginning 5 days ago Technique: Obstetrical ultrasound images less than 14 weeks performed via transabdominal imaging Findings: Uterus 6.5 cm endometrial stripe 1.0 cm No intrauterine gestation Right ovary 3.1 cm arterial flow Left ovary 2.2 cm arterial flow IMPRESSION: Suspicious for retained products of conception, consider transvaginal pelvic sonography follow-up
== END | disposition home or self-care (01) ==
LOC: CDIM 09:05
PROVIDERS: Referring Provider Obstetrics & Gynecology; Visit Provider Obstetrics & Gynecology
DX: O20.0 Threatened abortion (principal); N93.8 Other specified abnormal uterine and vaginal bleeding
CPT/HCPCS: 76801; 76817

== ENCOUNTER 2025-08-01 14:33 | Outpatient (AMB) | payer MEDICAID, SELFPAY ==
--- NOTE | 2025-08-01 14:39 | AMB.GYNCLNOT ---
Allergies/Home Meds Allergies & Medications Allergies No Known Allergies Allergy (Verified 08/01/25 14:48) Intake Visit Data Collection New Patient or Established: Established Patient (seen at [facility] within 3 years) Reason for Visit:: LAB RESULTS - TELE MED Consent obtained for Telemed Visit: Yes Seen by Clinical Staff ONLY (RN/MA): No Boat Engines Installer Required: Yes Boat Engines Installer's name/title: SERGE CHATTERJEE MA Do You Feel Safe at Home: Yes Authorities Contacted: N/A PCP or OBGYN visit in last 3 months: Yes Date of Last PCP or OBGYN visit: 07/26/25 Hx Now: Yes Are you currently on any form of Control: No Last menstrual period: 06/20/25 Pain Present Currently: No Pain Scale Used: Berry-Dangelo/Numerical Pain scale:: 0 Smoking Status Smoking Status: Never smoker For Telemed visit only Telemed Video/Phone Visit: Yes Verbal consent obtained for Telemed visit?: Yes Verbal Consent witness name: SERGE CHATTERJEE MA Telemed Video/Phone visit w/Clinical Staff: 11-20 min 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 Menstrual regularity: regular Flow: normal Monthly: Yes How many days does period last: 5 Age at menarche: 15 Menopausal: No Currently 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 1. Little interest or pleasure in doing things: not at all 2. Feeling down, depressed, or hopeless: not at all Total score: 0 PHQ-9 3. Trouble falling or staying asleep, or sleeping too much: Not at all 4. Feeling tired or having little energy: Not at all 5. Poor appetite or overeating: Not at all 6. Feeling bad about yourself - or that you are a failure or have let yourself or your family down: Not at all 7. Trouble concentrating on things, such as reading the newspaper or watching television: Not at all 8. Moving or speaking so slowly that other people could have noticed? - Or the opposite - being so fidgety or restless that you have been moving around a lot more than usual: not at all 9. Thoughts that you would be better off or of hurting yourself in some way: Not at all Total score: 0 If you checked off any problems, how difficult have these problems made it for you to do your work, take care of things at home, or get along with other people?: not difficult at all Source: Developed by Drs. Denton Almanza, Beba Woodward, Luis Begum and colleagues, with an educational avel from [employer]. Depression screen completed yes Social History Living Situation History Marital Status: Lives With: Family Housing: House Tobacco History Smoking Status: Never smoker Second Hand Smoke Exposure: No Alcohol History Alcohol Intake: Never Domestic Abuse History Do You Feel Safe at Home: Yes Office Procedures OBC Clinic LOC & Office Proc's Nursing/Assessment Patient Status: Established Patient OB Clinic Nursing Assessment: Medication Reconciliation, Update PMH in EMR and Vital Signs OB Clinic Coordination of Care: Complex Care and Chronic Disease 1-5, Education Complex Pt/Fam, Consent,records obtained, informed consent, Results/Orders obtained and Staff clarify orders Established Patient Charge Established Patient Point Assignment: 95 Established Patient Point Charge: EP Level 3 (80-115) Telehealth If patient is seen using Teleconference methods, complete New/Est section, but DO NOT jaison points only jaison the correct Telemed visit type Telemed Phone/Video with patient at home & Dr,PA,LITHOGRAPHIC ETCHER: Yes Assessment & Plan Diagnosis / Problem List (1) Incomplete : Status: Acute
== END 2025-08-01 14:54 | disposition home or self-care (01) ==
LOC: HODSOBC 14:33
PROVIDERS: Supervising Provider Obstetrics & Gynecology; Visit Provider Obstetrics & Gynecology
DX: O03.4 Incomplete spontaneous abortion without complication (principal)
CPT/HCPCS: 99212; 99213; G0463

== ENCOUNTER 2025-08-09 09:06 | Outpatient (AMB) | payer MEDICAID, SELFPAY ==
--- NOTE | 2025-08-09 09:17 | AMB.GYNCLNOT ---
Vital Signs 08/09/25 09:18 Height 1.63 m Height Method Stated Weight 67.132 kg Weight Measurement Method Standing Scale BMI 25.2 BP 112/69 Blood Pressure Source Automatic Cuff Blood Pressure Location Left Upper Arm Position Sitting Respiration 18 Pulse 85 Pulse Source Monitor Temp 97.2 F Temp Source Oral Pulse Oximetry (%) 98 Oxygen Delivery Method Room Air Allergies/Home Meds Allergies & Medications Allergies No Known Allergies Allergy (Verified 08/09/25 09:19) Medication Reconciliation No Known Home Medications 08/09/25 [History Confirmed 08/09/25] Intake Visit Data Collection New Patient or Established: Established Patient (seen at [facility] within 3 years) Reason for Visit:: OBC Seen by Clinical Staff ONLY (RN/MA): No 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: No Do You Feel Safe at Home: Yes Authorities Contacted: N/A PCP or OBGYN visit in last 3 months: Yes Date of Last PCP or OBGYN visit: 07/26/25 Hx Now: No Are you currently on any form of Control: No Pain Present Currently: No Pain Scale Used: Berry-Dangelo/Numerical Pain scale:: 0 Smoking Status Smoking Status: Never smoker 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 1. Little interest or pleasure in doing things: not at all 2. Feeling down, depressed, or hopeless: not at all Total score: 0 PHQ-9 3. Trouble falling or staying asleep, or sleeping too much: Not at all 4. Feeling tired or having little energy: Not at all 5. Poor appetite or overeating: Not at all 6. Feeling bad about yourself - or that you are a failure or have let yourself or your family down: Not at all 7. Trouble concentrating on things, such as reading the newspaper or watching television: Not at all 8. Moving or speaking so slowly that other people could have noticed? - Or the opposite - being so fidgety or restless that you have been moving around a lot more than usual: not at all 9. Thoughts that you would be better off or of hurting yourself in some way: Not at all Total score: 0 If you checked off any problems, how difficult have these problems made it for you to do your work, take care of things at home, or get along with other people?: not difficult at all Source: Developed by Drs. Denton Almanza, Beba Woodward, Luis Begmu and colleagues, with an educational avel from [employer]. Depression screen completed yes Social History Living Situation History Marital Status: Single Lives With: Family Housing: House Tobacco History Smoking Status: Never smoker Second Hand Smoke Exposure: No Alcohol History Alcohol Intake: Never Domestic Abuse History Do You Feel Safe at Home: Yes History of Present Illness HPI Narrative Francisca Navarrete presents for a 2-week follow-up after spontaneous . She initially presented to the emergency room with a serum beta-hCG of 4900, which subsequently dropped to 1000 on July 26, 2025. On August 01, 2025, ultrasound showed retained clots and possible tissue, prompting initiation of medical management on that same date. The patient reports taking the prescribed medication as directed. She experienced some bleeding at home and passed a little bit of tissue-like matter, but denies passing large blood clots or tissue. Currently, she continues to have minimal residual mucus-like discharge when wiping, which she describes as slight residual mucus. She returns today for repeat ultrasound and follow-up blood work to confirm completion of the miscarriage process, as part of her scheduled 7-day post-treatment evaluation. The patient has been taking medicine for medical management. She is a 24-year-old female with an obstetric history of G1 T0 L0. She has a recent spontaneous managed medically in July 2025. ROS: Genitourinary: Positive for vaginal bleeding and passage of small tissue-like matter, negative for passage of large blood clots. Exam General General Appearance: alert, in no apparent distress and healthy appearing Head Head exam: atraumatic Neck Neck exam: Present normal inspection and trachea midline Chest Chest inspection: Present normal inspection and symmetric chest wall rise External exam: Present normal external exam; Absent tenderness Neuro Neurological exam: Present oriented X3 Psych Psychiatric exam: Present normal affect and normal mood Office Procedures OBC Clinic LOC & Office Proc's Nursing/Assessment Patient Status: Established Patient OB Clinic Nursing Assessment: Medication Reconciliation, Update PMH in EMR and Vital Signs OB Clinic Coordination of Care: Consent,records obtained, informed consent, Education Simp Pt/Fam, Lab and Imaging orders, Results/Orders obtained and Staff clarify orders Special Needs: Heart tones Established Patient Charge Established Patient Point Assignment: 110 Established Patient Point Charge: EP Level 3 (80-115) Assessment & Plan Diagnosis / Problem List (1) Nausea & vomiting: Status: Acute (2) Incomplete : Status: Acute Plan Spontaneous with Retained Products of Conception: - Status post medical management initiated 08-01-2025 following ultrasound showing retained clots and possible tissue. - Beta-hCG decreased from 4900 to 1000 by 07-26-2025. - Patient reports passing tissue-like matter at home with bleeding after taking prescribed medication. - Continues to have residual mucus discharge when wiping, expected and can persist up to one month post-miscarriage. Plan: - Order repeat beta-hCG today. - Order repeat ultrasound pending insurance approval: ? Will call patient when ultrasound order is ready. - Schedule virtual follow-up appointment for middle of next week (Tuesday or ) to review all test results and confirm complete resolution of miscarriage. - Patient education provided regarding normal mucus discharge that can persist up to one month.
[2025-08-09 09:18] VITALS: BP 112/69; PULSE 85; RESP 18; TEMP 36.2; O2SAT 98; BMI 25.2
== END 2025-08-09 09:34 | disposition home or self-care (01) ==
LOC: HODSOBC 09:06
PROVIDERS: Supervising Provider Obstetrics & Gynecology; Visit Provider Obstetrics & Gynecology
DX: O03.39 Incomplete spontaneous abortion with other complications (principal); R11.2 Nausea with vomiting, unspecified
CPT/HCPCS: 99213; G0463

== ENCOUNTER → 2025-08-13 | Outpatient (CLI) | payer MEDICAID, SELFPAY ==
--- NOTE | 2025-08-13 13:44 | XR_ITS ---
Examination: Complete OB ultrasound, less than 14 weeks, transabdominal Date and time of exam: August 13 0 25, 1424 hours INDICATIONS: Miscarriage July 25, 2025 Technique: Obstetrical ultrasound images less than 14 weeks performed via transabdominal imaging Findings: Uterus 6.8 cm no intrauterine gestation or uterine mass no retained products of conception Right ovary 3.2 cm arterial flow small follicles Left ovary 4.0 cm arterial flow small follicles IMPRESSION: No retained products of conception or intrauterine gestation
== END | disposition home or self-care (01) ==
LOC: CDIM 13:28
PROVIDERS: PCP Family Medicine; Referring Provider Obstetrics & Gynecology; Visit Provider Obstetrics & Gynecology
DX: O03.4 Incomplete spontaneous abortion without complication (principal)
CPT/HCPCS: 76801

== ENCOUNTER 2025-08-19 09:35 | Outpatient (AMB) | payer MEDICAID, SELFPAY ==
--- NOTE | 2025-08-19 10:59 | AMB.GYNCLNOT ---
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 Setup Operator's name/title: SERGE CHATTERJEE MA Do You Feel Safe at Home: Yes Authorities Contacted: N/A PCP or OBGYN visit in last 3 months: Yes Date of Last PCP or OBGYN visit: 07/26/25 Hx Now: No Are you currently on any form of Control: No Pain Present Currently: No Pain Scale Used: Berry-Dangelo/Numerical Pain scale:: 0 Smoking Status Smoking Status: Never smoker Immunizations Flu Vaccine in the Last 12 Months: No Flu Vaccine Exclusion Criteria: No Exclusion Criteria For Telemed visit only Telemed Video/Phone Visit: Yes Verbal consent obtained for Telemed visit?: Yes 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 History Menstrual regularity: regular Flow: normal Monthly: Yes Menopausal: No Currently sexually active: Yes 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 1. Little interest or pleasure in doing things: not at all 2. Feeling down, depressed, or hopeless: not at all Total score: 0 PHQ-9 3. Trouble falling or staying asleep, or sleeping too much: Not at all 4. Feeling tired or having little energy: Not at all 5. Poor appetite or overeating: Not at all 6. Feeling bad about yourself - or that you are a failure or have let yourself or your family down: Not at all 7. Trouble concentrating on things, such as reading the newspaper or watching television: Not at all 8. Moving or speaking so slowly that other people could have noticed? - Or the opposite - being so fidgety or restless that you have been moving around a lot more than usual: not at all 9. Thoughts that you would be better off or of hurting yourself in some way: Not at all Total score: 0 If you checked off any problems, how difficult have these problems made it for you to do your work, take care of things at home, or get along with other people?: not difficult at all Source: Developed by Drs. Denotn Almanza, Beba Woodward, Luis Begum and colleagues, with an educational avel from [employer]. Depression screen completed yes Social History Living Situation History Lives With: Family Housing: House Tobacco History Smoking Status: Never smoker Second Hand Smoke Exposure: No Alcohol History Alcohol Intake: Never Domestic Abuse History Do You Feel Safe at Home: Yes History of Present Illness HPI Narrative Francisca Navarrete presents for follow-up after a recent loss. The patient is being seen to review recent ultrasound and blood test results following what appears to have been a miscarriage or termination. She inquired about whether everything has cleared out from her uterus and whether she needs any additional treatment. The patient expressed interest in contraception and requested control pills to be sent to her. She has an obstetric history of G1 T0 L0 with recent loss with negative hormone and empty uterus. The patient is sexually active and has been counseled regarding contraception use to prevent . ROS: Negative except as stated above, limited to MUSIC EXECUTIVE and pertinent complaints. Exam General General Appearance: alert, in no apparent distress and healthy appearing Head Head exam: atraumatic Neck Neck exam: Present normal inspection and trachea midline Chest Chest inspection: Present normal inspection and symmetric chest wall rise External exam: Present normal external exam; Absent tenderness Neuro Neurological exam: Present oriented X3 Psych Psychiatric exam: Present normal affect and normal mood Office Procedures OBC Clinic LOC & Office Proc's Nursing/Assessment Patient Status: Established Patient OB Clinic Nursing Assessment: Update PMH in EMR OB Clinic Coordination of Care: Consent,records obtained, informed consent, Education Simp Pt/Fam, Lab and Imaging orders, Results/Orders obtained and Staff clarify orders Established Patient Charge Established Patient Point Assignment: 60 Telehealth If patient is seen using Teleconference methods, complete New/Est section, but DO NOT jaison points only jaison the correct Telemed visit type Telemed Phone/Video with patient at home & Dr,LOLIS,EVAPORATOR: Yes Assessment & Plan Diagnosis / Problem List (1) Encounter for initial prescription of contraceptive pills: Status: Acute (2) Incomplete : Status: Acute Plan Recent Loss with Clearance: - Patient has completed clearance following loss. - Ultrasound and blood tests demonstrate favorable results with negative hormone levels and empty uterus, indicating complete evacuation of tissue. Plan: - Await return of normal menstrual cycle, expected within 1 month but may take up to 2 months. - Contraception counseling provided regarding fertility return and need for control if sexually active and not attempting . - Prescribe contraceptive pills per patient request. Contraceptive Counseling: - Patient requests contraceptive pills following loss clearance. - Counseling provided regarding fertility return and contraceptive needs. Plan: - Prescribe contraceptive pills per patient request. - Discuss timing of contraceptive initiation following loss. - Reassess contraceptive needs at follow-up visit.
== END 2025-08-19 11:20 | disposition home or self-care (01) ==
PROVIDERS: Supervising Provider Obstetrics & Gynecology; Visit Provider Obstetrics & Gynecology
DX: O03.4 Incomplete spontaneous abortion without complication (principal); Z30.011 Encounter for initial prescription of contraceptive pills
CPT/HCPCS: 99212; G0463